=== PATIENT | female | born 1970 | race American Indian/Alaskan Native ===

== ENCOUNTER 2020-07-19 08:58 | Outpatient (CLI) | payer MEDICAID ==
--- NOTE | 2020-07-19 11:15 | XRay Report ---
CERVICAL SPINE 5 VIEWS INDICATION: Cervicalgia. COMPARISON: No relevant prior imaging study available. FINDINGS: VERTEBRAE: No acute fracture. Normal alignment. DISC SPACES: No significant abnormality. FACET JOINTS: No significant abnormality. SOFT TISSUES: No significant abnormality. ADDITIONAL FINDINGS: No additional significant findings. IMPRESSION: 1. No acute findings. Signer Name: Andrew Milligan MD Signed: 07/19/2020 11:11 AM Workstation Name: [id number]
--- NOTE | 2020-07-19 11:16 | XRay Report ---
LUMBAR SPINE 6 VIEWS INDICATION: Low back pain. COMPARISON: No relevant prior imaging study available. FINDINGS: VERTEBRAE: No acute fracture. There is mild levoscoliosis of the lumbar spine versus patient position ing. Grade 1 anterolisthesis is seen at L4-L5. DISC SPACES: No significant abnormality. FACET JOINTS: No significant abnormality. SOFT TISSUES: No significant abnormality. ADDITIONAL FINDINGS: No additional significant findings. IMPRESSION: 1. No acute findings. 2. Grade 1 anterolisthesis at L4-L5 with additional findings as above. Signer Name: Andrew Milligan MD Signed: 07/19/2020 11:12 AM Workstation Name: [id number]
== END 2020-07-19 08:59 | disposition home or self-care (01) ==
LOC: XRAY 08:58
PROVIDERS: ATTEND Orthopaedic Surgery
DX: M43.16 Spondylolisthesis, lumbar region (principal); M54.2 Cervicalgia
CPT/HCPCS: 72050; 72110